=== PATIENT | female | born 1950 | race Caucasian/White ===

== ENCOUNTER 2024-01-20 02:42 | Emergency (ER) | payer OTHER, SELFPAY ==
[2024-01-20 02:43] VITALS: BP 94/65
[2024-01-20] MEDS: NSS 1000 IV (03:22)
--- NOTE | 2024-01-20 03:29 | ED.GENMED ---
History of Present Illness
General
Chief Complaint: Abdominal Symptoms
Source: patient and significant other
Exam Limitations: none
Time Seen by Provider: 01/20/24 02:54
Nursing documentation reviewed up to this point in time: agreed with
History of Present Illness
History of Present Illness:
Pleasant 73-year-old female who presents with 1 month of daily diarrhea. She states that a month ago she started to develop yellow stools. She reports every day having diarrhea. Was seen by her family doctor and had full workup including stool
samples completed about a month ago. Patient states that all tests were negative.
Vital signs are stable. Patient not hypoxic
Nursing note reviewed. I agree with nursing documentation up to this point in time.
Home Meds and allergies reviewed.
NUMBER AND COMPLEXITY OF PROBLEMS ADDRESSED AT THE ENCOUNTER
� Chronic conditions affecting care: Gastric bypass, history of diarrhea
� Acute Exacerbation and/or Progression of Chronic Illness:
� Differential Diagnosis includes: Colitis, IBD, ulcerative colitis
AMOUNT AND/OR COMPLEXITY OF DATA TO BE REVIEWED AND ANALYZED
I performed an independent evaluation of the following and my interpretation is:
EKG:
CT:
X-rays:
Ultrasound:
Laboratory Studies: 4.6 white blood cell count
Other:
Review of other/old records:
Clinical information was obtained by an independent historian: Family member present at the bedside
Prescriptions/Medications Considered but not given:
Further testing considered but not performed:
RISK OF COMPLICATIONS AND/OR MORBIDITY OR MORTALITY OF PATIENT MANAGEMENT
Social determinants of health affecting care: Good Social Support
Discussion with other providers:
Escalation of care including admission/observation vs risk of discharge considered: Patient states that she is feeling better. Patient to be discharged home on antibiotics since she has been having the symptoms for 1 month.
She did leave a stool sample. Patient has a follow-up appointment with gastroenterology but she will try to get that moved up.
CRITICAL CARE NOTE:
Total Time (exclusive of procedures):
Update:
Phy Exam
General Physical Exam
General Presentation: well appearing and no apparent distress
General Skin: warm and dry
General Habitus: normal
General Mental: alert
General Hydration: appears well hydrated
ENT Exam
ENT Exam: EOMI, pharynx normal, neck supple and normocephalic
Eye Exam
Eye Exam: PERRL, cornea clear and conjunctiva normal
Cardiovascular Exam
Cardiovascular Exam: regular rate/rhythm, no edema, no murmur and normal peripheral pulses
Pulmonary Exam
Pulmonary Exam: lungs clear, no respiratory distress, no rales, no crackles, no rhonchi, no stridor, no wheezing and no cough
Gastrointestinal Exam
Gastrointestinal Exam: normal bowel sounds, non tender, soft, no organomegaly, no pulsatile mass and non distended
Neurological Exam
Neurological Exam: alert, oriented x3, no motor deficits and speech normal
Musculoskeletal Exam
Musculoskeletal Exam: full ROM and no edema
Skin Exam
Skin Exam: normal color, warm/dry, no rash and no petechia
Psychiatric Exam
Psychiatric Exam: normal mood/affect
Course
Orders/Labs/Results
Orders:
Orders
01/20/24 03:15
CT Abd/pelvis W Iv Cont Urgent
Comment:
Reason For Exam: subacute diarrhea
0.9% Sodium Chloride 1000 ml [Nss] 1,000 ml IV 250 mls/hr
01/20/24 03:21
Complete Blood Count/With Diff Urgent
Comprehensive Metabolic Panel Urgent
Lactic Acid Urgent
Lipase Urgent
Manual Differential Urgent
01/20/24 05:31
LevoFLOXacin [Levaquin] 750 mg PO NOW STA
MetroNIDAZOLE [Flagyl] 500 mg PO NOW STA
01/20/24 06:22
STOOL [C difficile Antigen & Toxins] Urgent
JARED Source: Feces/Stool
Specimen Description:
Date Specimen was Collected: 01/20/24
Time Specimen was Collected: 06:20
Stool Culture Urgent
JARED Source: Feces/Stool
Specimen Description:
Date Specimen was Collected: 01/20/24
Time Specimen was Collected: 06:20
Stool For WBC Urgent
JARED Source: Feces/Stool
Specimen Description:
Date Specimen was Collected: 01/20/24
Time Specimen was Collected: 06:20
Abnormal Lab Results
01/20/24
03:21
WBC 4.6 L 10^3/uL
(4.8-10.8)
MPV 10.6 H fL
(7.4-10.4)
Segmented Neutrophils 13 L %
(42-75)
Band Neutrophils 38 H %
(0-3)
Monocytes (Manual) 17 H %
(2-9)
Sodium 134 L mmol/L
(135-145)
Chloride 97 L mmol/L
(98-107)
BUN 25 H mg/dl
(7-17)
Creatinine 1.5 H mg/dL
(0.6-1.0)
Glucose 252 H mg/dl
(70-99)
Total Bilirubin 3.1 H mg/dl
(0.2-1.3)
01/20/24 03:21
01/20/24 03:21
Vital Signs
Initial and Last Documented VS:
Initial Vital Signs
Temp Pulse Resp BP Pulse Ox
99.5 F 114 16 94/65 96
01/20/24 02:43 01/20/24 02:43 01/20/24 02:43 01/20/24 02:43 01/20/24 02:43
Last Documented Vital Signs
Temp Pulse Resp BP Pulse Ox
99.5 F 96 16 95/61 99
01/20/24 02:43 01/20/24 04:39 01/20/24 04:39 01/20/24 04:39 01/20/24 04:39
*Critical Care Note
Total Time (30-74mins, 75-104mins- exclusive of procedures): Not Applicable
Update Note
Update Note:
CT abdomen and pelvis with IV contrast
IMPRESSION:
Acute pancolitis without obstruction or perforation. Appendix normal.
Stomach decompressed status post Aileen-en-Y gastric bypass. No cholecystitis or pancreatitis. No obstructing renal stone. Abdominal aorta is of normal caliber.
ED Attending Note
-
Portions of this chart may have been created with voice recognition software.� Occasional wrong word or��sound alike� substitutions may have occurred due to the inherent limitations of voice recognition software.
Discharge Plan
Departure
Patient Disposition: Home (Routine Discharge)
Date of Disposition: 01/20/24
Time of Disposition: 05:27
Patient with high blood pressure during this ER visit?: No
Discharge Problem:
Pancolitis
Instructions: [place]ade Diet, Colitis (DC)
Prescriptions:
New
levofloxacin 750 mg tablet
750 mg PO DAILY 10 Days Qty: 10 0RF
metronidazole 500 mg tablet
500 mg PO TID Qty: 30 0RF
Referrals:
Guillermo Lee DO [Family Provider] -
Sujata Moon DO [Active] - Next open appointment
Activity Restrictions/Additional Instructions:
Your prescriptions were sent electronically to the pharmacy that you specified.
It was a pleasure meeting you and taking part in your care. We hope for your continued healing and wellness.
Please read discharge instructions in their entirety. However, they are for general education and may not describe your exact diagnosis at discharge. Information on your ER visit and medical conditions were discussed with you along with appropriate
follow up information...
If indicated, please take your medications as instructed and indicated on discharge paperwork.
Please schedule a follow up appointment as directed. Call to schedule an appointment
Please return to the emergency department with ANY change in, persisting, or worsening of symptoms. If any of your symptoms do not improve, or persist, or become more severe within 6-12 hours, please return to the emergency department for further
care.
Please return to the emergency department if you develop a headache, neck pain/stiffness, fever greater than 100.4F, chest pain, shortness of breath, persistent nausea, vomiting, slurred speech, difficulty walking, numbness/tingling, weakness, signs
of infection or any other symptoms that are worrisome to you.
If you have any questions or concerns please do not hesitate to call the Hospital at or E-mail me directly at [email or web address]
Interventions
Interventions:
*Risk Screen - Suicide Last Done: 01/20/24 02:43
*General Assessment Last Done: 01/20/24 02:43
*Neglect/Abuse Screening Last Done: 01/20/24 02:43
ED- Fall Risk Assessment Last Done: 01/20/24 02:43
*ED COVID-19 Vaccine History Last Done: 01/20/24 02:43
*Nursing Disposition Last Done: 01/20/24 06:33
IJ-Mytfpw-Wrggeruvzr Assessment Last Done: 01/20/24 04:08
Discharge Date and Time
Discharge Date/Time: 01/20/24 06:36
Print Language: FAROESE
[2024-01-20 03:41] LABS: Hematocrit 40.7 % (37.0-47.0); Hemoglobin 14.3 g/dL (12.0-16.0); Mean Corp Hgb Conc. 35.1 g/dL (33.0-37.0); Mean Corpuscular Hgb 30.1 pg (27.0-31.0); Mean Corpuscular Volume 85.7 fL (81.0-99.0); Mean Platelet Volume 10.6 fL (7.4-10.4); Platelet Count 264 10^3/uL (130-400); Red Blood Cell Count 4.75 10^6/uL (4.20-5.40); Red Cell Dist. Width 13.6 % (11.5-14.5); White Blood Cell Count 4.6 10^3/uL (4.8-10.8)
[2024-01-20 03:53] LABS: Lactic Acid 1.8 mmol/L (0.7-2.0)
[2024-01-20 03:54] LABS: ALT (SGPT) 20 U/L (0-35); AST (SGOT) 21 U/L (14-36); Albumin 4.5 g/dl (3.5-5.0); Alkaline Phosphatase 84 U/L (38-126); Blood Urea Nitrogen 25 mg/dl (7-17); Calcium 9.6 mg/dl (8.4-10.2); Carbon Dioxide 23 mmol/L (22-30); Chloride 97 mmol/L (98-107); Glucose 252 mg/dl (70-99); Lipase 119 U/L (23-300); Potassium 3.6 mmol/L (3.5-5.1); Sodium 134 mmol/L (135-145); Total Bilirubin 3.1 mg/dl (0.2-1.3); eGFR 36.12
[2024-01-20 04:36] LABS: Absolute Neutrophils -Man Diff 2.3 10^3/uL (1.4-6.5); Band Neutrophils 38 % (0-3); Lymphocytes 30 % (20-51); Metamyelocytes 2 % (-); Monocytes 17 % (2-9); Platelets Checked Yes; Segmented Neutrophils 13 % (42-75)
[2024-01-20 04:37] LABS: Normal RBC Morphology Yes; Total Cells Counted 100; Toxic Granulation 1+; Vacuolated Segs Occasional
[2024-01-20 04:39] VITALS: BP 95/61
[2024-01-20] MEDS: LEVAQUIN 750 MG PO (06:14)
[2024-01-20] MEDS: FLAGYL 500 MG PO (06:15)
== END 2024-01-20 06:36 | disposition home or self-care (01) ==
LOC: EMR 02:42
PROVIDERS: EMERGENCY PHYSICIAN Student in an Organized Health Care Education/Training Program; FAMILY PHYSICIAN Family Medicine
DX: K52.9 Noninfective gastroenteritis and colitis, unspecified (principal)
CPT/HCPCS: 99285; 74177; 80053; 83605; 83690; 85025; 87045; 87046; 87324; 87427; 87449; 89055; Q9967

== ENCOUNTER 2024-01-22 17:53 | Emergency (ER) | payer OTHER, SELFPAY ==
[2024-01-22 17:57] VITALS: BP 116/94
[2024-01-22 19:28] VITALS: BMI 28.6
[2024-01-22 19:29] VITALS: BP 141/81
--- NOTE | 2024-01-22 19:50 | ED.GENMED ---
History of Present Illness
<Mellissa Jones, DO - Last Filed: 01/22/24 19:53>
General
Chief Complaint: Abdominal Symptoms
Time Seen by Provider: 01/22/24 18:58
<Candie Ibrahim MD, Resident - Last Filed: 01/22/24 22:06>
History of Present Illness
History of Present Illness:
73-year-old female with a history of diabetes presented to the ED with sever abdominal pain, nausea, diarrhea. Patient was seen on 710 in the ED with similar complaints, abdominal CT/pelvis showed moderate colitis most prominent from the cecum to
the splenic flexure. She was prescribed levofloxacin 750 mg and metronidazole 500 mg for 10 days. She also had stool studies completed which were negative for C. difficile, Salmonella, Shigella, E. coli Shiga toxin. She reports about 5- 6 episodes
of diarrhea today and feels dehydrated. Now in the ED abdominal pain has improved, pain scale 2/10. She states that this morning her pain was around 10/10. She denies chest pain, shortness of breath, palpitation. She reports of pain radiating to
her back.
Past History
<Candie Ibrahim MD, Resident - Last Filed: 01/22/24 22:06>
Past History
ED Past Medical History: NIDDM
Social History
Tobacco: Non-smoker
Alcohol: None
Drug: None
Personal:
Living: with family
Review of Systems
<Candie Ibrahim MD, Resident - Last Filed: 01/22/24 22:06>
Review of Systems
ABD/GI: Reports abdominal pain, nausea and diarrhea
Phy Exam
<Candie Ibrahim MD, Resident - Last Filed: 01/22/24 22:06>
General Physical Exam
General Presentation: no apparent distress
Cardiovascular Exam
Cardiovascular Exam: regular rate/rhythm
Pulmonary Exam
Pulmonary Exam: lungs clear
Gastrointestinal Exam
Gastrointestinal Exam: normal bowel sounds, soft, non distended and other (mild epigastric tenderness )
Neurological Exam
Neurological Exam: alert and oriented x3
Course
<Mellissakaterina Jones, DO - Last Filed: 01/22/24 19:53>
Orders/Labs/Results
Orders:
Orders
01/22/24 19:32
CefTRIAXone [Rocephin] 1,000 mg IV NOW STA
01/22/24 19:44
0.9% Sodium Chloride 500 ml [Nss] 500 ml IV BOLUS
01/22/24 20:03
Complete Blood Count/With Diff Urgent
Comprehensive Metabolic Panel Urgent
Lipase Urgent
Abnormal Lab Results
01/22/24
20:03
Hct 36.7 L %
(37.0-47.0)
MPV 10.6 H fL
(7.4-10.4)
Abs Immat Gran (auto) 0.1 H 10^3/uL
(0-0.05)
Absolute Monos (auto) 0.8 H 10^3/uL
(0.1-0.6)
Immature Gran % 1.3 H %
(0-0.5)
Monocytes % 12.2 H %
(1.7-9.3)
Sodium 134 L mmol/L
(135-145)
Potassium 3.3 L mmol/L
(3.5-5.1)
Carbon Dioxide 19 L mmol/L
(22-30)
BUN 36 H mg/dl
(7-17)
Creatinine 1.9 H mg/dL
(0.6-1.0)
Glucose 191 H mg/dl
(70-99)
Total Bilirubin 1.4 H D mg/dl
(0.2-1.3)
01/22/24 20:03
01/22/24 20:03
Vital Signs
Initial and Last Documented VS:
Initial Vital Signs
Temp Pulse Resp BP Pulse Ox
97.2 F 105 18 116/94 100
01/22/24 17:57 01/22/24 17:57 01/22/24 17:57 01/22/24 17:57 01/22/24 17:57
Last Documented Vital Signs
Temp Pulse Resp BP Pulse Ox
97.2 F 86 13 141/81 97
01/22/24 17:57 01/22/24 19:30 01/22/24 19:30 01/22/24 19:29 01/22/24 19:28
<Candie Ibrahim MD, Resident - Last Filed: 01/22/24 22:06>
Orders/Labs/Results
Orders:
Orders
01/22/24 19:32
CefTRIAXone [Rocephin] 1,000 mg IV NOW STA
01/22/24 19:44
0.9% Sodium Chloride 500 ml [Nss] 500 ml IV BOLUS
01/22/24 20:03
Complete Blood Count/With Diff Urgent
Comprehensive Metabolic Panel Urgent
Lipase Urgent
Abnormal Lab Results
01/22/24
20:03
Hct 36.7 L %
(37.0-47.0)
MPV 10.6 H fL
(7.4-10.4)
Abs Immat Gran (auto) 0.1 H 10^3/uL
(0-0.05)
Absolute Monos (auto) 0.8 H 10^3/uL
(0.1-0.6)
Immature Gran % 1.3 H %
(0-0.5)
Monocytes % 12.2 H %
(1.7-9.3)
Sodium 134 L mmol/L
(135-145)
Potassium 3.3 L mmol/L
(3.5-5.1)
Carbon Dioxide 19 L mmol/L
(22-30)
BUN 36 H mg/dl
(7-17)
Creatinine 1.9 H mg/dL
(0.6-1.0)
Glucose 191 H mg/dl
(70-99)
Total Bilirubin 1.4 H D mg/dl
(0.2-1.3)
01/22/24 20:03
01/22/24 20:03
Vital Signs
Initial and Last Documented VS:
Initial Vital Signs
Temp Pulse Resp BP Pulse Ox
97.2 F 105 18 116/94 100
01/22/24 17:57 01/22/24 17:57 01/22/24 17:57 01/22/24 17:57 01/22/24 17:57
Last Documented Vital Signs
Temp Pulse Resp BP Pulse Ox
97.2 F 86 13 141/81 97
01/22/24 17:57 01/22/24 19:30 01/22/24 19:30 01/22/24 19:29 01/22/24 19:28
<Candie Ibrahim MD, Resident - Last Filed: 01/22/24 22:06>
*Critical Care Note
Total Time (30-74mins, 75-104mins- exclusive of procedures): Not Applicable
<Candie Ibrahim MD, Resident - Last Filed: 01/22/24 22:06>
Update Note
Update Note:
73 year old female presented with abdominal pain, lying comfortably in bed. CBC, CMP ordered. IV fluids.
D/D
#1 perforation less likely as the patient is lying comfortably in bed
#2 bowel obstruction
#3 diverticulitis
- Perforation less likely as patient is comfortable and her pain has improved since arrival to the hospital.
- Will repeat labs -CBC, CMP and give IV fluids due to dry mucous membrane I do not see a need to re scan her as CT scan abd/ pelvis was done recently on 01/19.
- Plan to treat patient outpatient with continuation of antibiotics.
Patient is feeling better, plan to discharge. Advised patient to f/u with PCP, continue levofloxacin and metronidazole and give some time for the antibiotics to work. Return to ED with return of symptoms.
ED Attending Note
<Mellissa Jones DO - Last Filed: 01/22/24 19:53>
ED Attending Note
Patient seen and examined by attending physician: Yes
I performed the substantive portion of visit, reviewed & personally made and approve the management plan that is documented in note by myself or SHANTE.: Yes
I performed a history and physical exam of patient and discussed management with resident, I reviewed resident's note and agree with documented findings and plan of care.: Yes
ED Attending Note:
Patient seen and examined at bedside, 73-year-old female presenting to the emergency department for persistent diarrhea and abdominal pain. Patient reports she has been having ongoing diarrhea for the past month. She was seen in the hospital 2
days ago, had workup including CT abdominal imaging which showed moderate colitis. Patient had been started on antibiotics, levofloxacin and metronidazole. She also had stool studies completed which were negative for C. difficile, Salmonella,
Shigella, E. coli Shiga toxin. She reports she had about 6 episodes of diarrhea today and feels dehydrated. She also had an episode of worsening abdominal pain which prompted her to come back to the hospital. Since arrival to the hospital, her
pain has improved. Denies chest pain or difficulty breathing. Denies associated vomiting. Vital signs on arrival significant for mild tachycardia.
On exam, patient is in no acute distress, resting comfortably. Mild dryness to mucous membranes. Unremarkable cardiac and pulmonary exam. On abdominal exam, abdomen soft, nondistended, no focal reproducible tenderness. No distention or rigidity.
Without concern for perforation. Continue to suspect colitis is etiology of patient's symptoms. Do not feel patient requires any repeat abdominal imaging. Will repeat laboratory analysis and treat patient therapeutically with IV fluids. Plan
for continued outpatient management with antibiotics.
-
Portions of this chart may have been created with voice recognition software.� Occasional wrong word or��sound alike� substitutions may have occurred due to the inherent limitations of voice recognition software.
Discharge Plan
Departure
Patient Disposition: Home (Routine Discharge)
Date of Disposition: 01/22/24
Time of Disposition: 22:05
Patient with high blood pressure during this ER visit?: No
Discharge Problem:
Abdominal pain
Prescriptions:
No Action
levofloxacin 750 mg tablet
750 mg PO DAILY 10 Days Qty: 10 0RF
metronidazole 500 mg tablet
500 mg PO TID Qty: 30 0RF
Referrals:
Guillermo Lee, DO [Family Provider] - Follow up in 5-7 days
Interventions
Interventions:
*Risk Screen - Suicide Last Done: 01/22/24 19:28
*General Assessment Last Done: 01/22/24 19:28
*Neglect/Abuse Screening Last Done: 01/22/24 19:28
ED- Fall Risk Assessment Last Done: 01/22/24 19:28
*ED COVID-19 Vaccine History Last Done: 01/22/24 19:28
LE-Ewjwra-Pulrwfchzw Assessment Last Done: 01/22/24 19:28
Discharge Date and Time
Print Language: ROMANIAN
[2024-01-22 20:00] VITALS: BP 138/87
[2024-01-22] MEDS: NSS 500 IV (20:05)
[2024-01-22 20:14] LABS: % Basophils 0.7 % (0-2); % Eosinophils 1.5 % (0-6); % Immature Granulocytes 1.3 % (0-0.5); % Lymphocytes 24.2 % (20.5-51.1); % Monocytes 12.2 % (1.7-9.3); % Neutrophils 60.1 % (42.2-75.2); Absolute Basophils 0.1 10^3/uL (0-0.2); Absolute Eosinophils 0.1 10^3/uL (0-0.7); Absolute Immature Granulocytes 0.1 10^3/uL (0-0.05); Absolute Lymphocytes 1.6 10^3/uL (1.2-3.4); Absolute Monocytes 0.8 10^3/uL (0.1-0.6); Absolute Neutrophils 4.1 10^3/uL (1.4-6.5); Hematocrit 36.7 % (37.0-47.0); Hemoglobin 13.1 g/dL (12.0-16.0); Mean Corp Hgb Conc. 35.7 g/dL (33.0-37.0); Mean Corpuscular Hgb 29.9 pg (27.0-31.0); Mean Corpuscular Volume 83.8 fL (81.0-99.0); Mean Platelet Volume 10.6 fL (7.4-10.4); Nucleated Red Blood Cells % 0 %; Platelet Count 299 10^3/uL (130-400); Red Blood Cell Count 4.38 10^6/uL (4.20-5.40); Red Cell Dist. Width 13.5 % (11.5-14.5); White Blood Cell Count 6.8 10^3/uL (4.8-10.8)
[2024-01-22 20:34] LABS: ALT (SGPT) 16 U/L (0-35); AST (SGOT) 21 U/L (14-36); Albumin 4.1 g/dl (3.5-5.0); Alkaline Phosphatase 83 U/L (38-126); Blood Urea Nitrogen 36 mg/dl (7-17); Calcium 9.2 mg/dl (8.4-10.2); Carbon Dioxide 19 mmol/L (22-30); Chloride 101 mmol/L (98-107); Estimated Creatinine Clearance 26 ml/min; Glucose 191 mg/dl (70-99); Lipase 112 U/L (23-300); Potassium 3.3 mmol/L (3.5-5.1); Sodium 134 mmol/L (135-145); Total Bilirubin 1.4 mg/dl (0.2-1.3); Total Protein 6.6 g/dl (6.3-8.2)
[2024-01-22 21:00] VITALS: BP 133/77
== END 2024-01-22 22:19 | disposition home or self-care (01) ==
LOC: EMR 17:53
PROVIDERS: Student in an Organized Health Care Education/Training Program; EMERGENCY PHYSICIAN Student in an Organized Health Care Education/Training Program; FAMILY PHYSICIAN Family Medicine
DX: R10.9 Unspecified abdominal pain (principal); R11.0 Nausea; R19.7 Diarrhea, unspecified; K52.9 Noninfective gastroenteritis and colitis, unspecified; E11.9 Type 2 diabetes mellitus without complications
CPT/HCPCS: 99284; 96360; 80053; 83690; 85025

== ENCOUNTER → 2024-05-23 08:23 | Outpatient (REF) | payer OTHER, SELFPAY | LOC: RAD 08:23 | PROVIDERS: ATTENDING PHYSICIAN Student in an Organized Health Care Education/Training Program | DX: M81.0 Age-related osteoporosis without current pathological fracture (principal) | CPT/HCPCS: 77080 ==

== ENCOUNTER → 2024-07-26 10:14 | Outpatient (REF) | payer OTHER, SELFPAY | LOC: HWWDC 10:14 | PROVIDERS: ATTENDING PHYSICIAN Student in an Organized Health Care Education/Training Program | DX: Z12.31 Encounter for screening mammogram for malignant neoplasm of breast (principal) | CPT/HCPCS: 77063; 77067 ==

== ENCOUNTER 2024-09-29 06:22 | Day surgery (SDC) | payer OTHER, SELFPAY ==
[2024-09-29 09:15] LABS: Glucose - Point of Care 155 mg/dl (70-99)
== END 2024-09-29 10:49 | disposition home or self-care (01) ==
LOC: GI 06:22
PROVIDERS: ATTENDING PHYSICIAN Internal Medicine Gastroenterology
DX: D12.4 Benign neoplasm of descending colon (principal); K57.30 Diverticulosis of large intestine without perforation or abscess without bleeding; K62.1 Rectal polyp; R93.3 Abnormal findings on diagnostic imaging of other parts of digestive tract
CPT/HCPCS: 45380; 88305; 82962

== ENCOUNTER → 2025-06-12 07:29 | Outpatient (REF) | payer SELFPAY | LOC: HWRAD 07:29 | PROVIDERS: ATTENDING PHYSICIAN Student in an Organized Health Care Education/Training Program | DX: E78.49 Other hyperlipidemia (principal) | CPT/HCPCS: 75571 ==